=== PATIENT | female | born 2000 | race Caucasian/White ===

== ENCOUNTER 2019-05-10 20:24 | Emergency (ER) | payer SELFPAY ==
[2019-05-10] MEDS ORDERED: NAPROXEN 250 MG TABLET PO ONE (23:41)
--- NOTE | 2019-05-10 23:43 | ER Document Report ---
HPI - HPI Time Seen by Provider: 05/10/19 23:37 Pain Level: 4 Context: Patient is a 18-year-old female that comes emergency department for chief complaint of injury to her right wrist. She states that she slipped on a step, fell onto her buttocks, when she was falling she landed awkwardly on her right wrist. She denies back pain, head injury, or any other areas of pain. She denies any past medical history, denies daily medications, denies . - REPRODUCTIVE Reproductive: DENIES: : Past Medical History - General Information source: Patient - Social History Smoking Status: Never Smoker Frequency of alcohol use: None Drug Abuse: None Lives with: Family Family History: Reviewed & Not Pertinent - Medical History Medical History: Negative Surgical Hx: Negative - Immunizations Immunizations up to date: Yes Hx Diphtheria, Pertussis, Tetanus Vaccination: Yes Vertical Provider Document - CONSTITUTIONAL General Appearance: WD/WN, No Apparent Distress - INFECTION CONTROL TRAVEL OUTSIDE OF THE [place] IN LAST 30 DAYS: No - HEENT HEENT: Atraumatic, Normocephalic - NECK Neck: Normal Inspection - RESPIRATORY Respiratory: Breath Sounds Normal, No Respiratory Distress - CARDIOVASCULAR Cardiovascular: Regular Rate, Regular Rhythm - GI/ABDOMEN Gastrointestinal: Abdomen Soft, Abdomen Non-Tender - BACK Back: Normal Inspection - MUSCULOSKELETAL/EXTREMETIES Musculoskeletal/Extremeties: Tender - There is mild tenderness over the ulnar aspect of the right wrist. There is no swelling. Range of motion is intact. No snuffbox tenderness. No hand, forearm, elbow exam otherwise. - NEURO Level of Consciousness: Awake, Alert, Appropriate Motor/Sensory: No Motor Deficit, No Sensory Deficit - DERM Integumentary: Warm, Dry, No Rash Course - Re-evaluation Re-evalutation: X-ray negative. Physical examination is not concerning, no significant tenderness, no swelling, no snuffbox tenderness. Placed on cock-up wrist splint, discussed recommendations, expectations, follow-up, return precautions. Patient states satisfaction agreement. - Vital Signs Vital signs: Temp Pulse Resp BP Pulse Ox 98.2 F 83 18 105/52 L 99 05/10/19 20:38 05/10/19 20:38 05/10/19 20:38 05/10/19 20:38 05/10/19 20:38 Procedures - Immobilization Right wrist Pre-Proc Neuro Vasc Exam: Normal Immobilizer type: Cock-up Performed by: PCT Post-Proc Neuro Vasc Exam: Normal Alignment checked and good: Yes Discharge - Discharge Clinical Impression: Right wrist injury Qualifiers: Encounter type: initial encounter Qualified Code(s): S69.91XA - Unspecified injury of right wrist, hand and finger(s), initial encounter Condition: Stable Disposition: HOME, SELF-CARE Additional Instructions: Your x-ray does not show a fracture. Your examination is consistent with a sprain of the wrist joint and the tendon. I recommend ice 3-4 times a day for 10 to 15 minutes, wear the brace for the first 2 to 3 days, take the anti-inflam matory as prescribed. Symptoms should resolve with time. After symptoms resolve resume normal activity. Return if you worsen including severe swelling or pain. Prescriptions: Naproxen 375 mg PO BID PRN #14 tablet.dr JOSHI Reason: Forms: Return to Work, Treatment of Relative/Child
--- NOTE | 2019-05-11 00:25 | RADIOLOGY REPORT (SQ) ---
CLINICAL HISTORY: fall, pain COMPARISON: None. TECHNIQUE: XR WRIST 3 OR MORE VIEWS BILATERAL 05/10/2019 11:37 PM CDT FINDINGS: There is no fracture. Joint spaces are preserved. Soft tissues are unremarkable. IMPRESSION: No acute osseous findings.
[2019-05-11 01:04] VITALS: BP 106/56
== END 2019-05-11 01:05 | disposition home or self-care (01) ==
LOC: ER 20:24
DX: S69.91XA Unspecified injury of right wrist, hand and finger(s), initial encounter (principal); W10.9XXA Fall (on) (from) unspecified stairs and steps, initial encounter
CPT/HCPCS: 99283; 73110; L3908